=== PATIENT | male | born 1995 | race Caucasian/White ===

== ENCOUNTER 2017-12-31 11:30 | Emergency (ER) | payer OTHER ==
[2017-12-31 12:13] VITALS: BP 130/73
--- NOTE | 2017-12-31 12:41 | UC ---
Eye Complaint HPI - HPI Summary HPI Summary: 22 YO M C/O SPRAY PAINT GOT INTO BOTH EYES YESTERDAY. HE WASHED THEM OUT WITH WATER RIGHT AWAY. C/O BURNING AND REDNESS OF EYES SINCE THEN. THE SX HAVE IMPROVED. INITIALLY SOOME BLURRED VISION, THE VISION RETURNED TO NORMAL. NO CONTACTS. - History of Current Complaint Chief Complaint: UCEye Stated Complaint: EYE IRRITATION (WC) Time Seen by Provider: 12/31/17 12:25 Pain Intensity: 3 - Allergies/Home Medications Allergies/Adverse Reactions: Allergies Allergy/AdvReac Type Severity Reaction Status Date / Time No Known Allergies Allergy Verified 12/31/17 12:09 PMH/Surg Hx/FS Hx/Imm Hx Previously Healthy: Yes Other Cardiovascular History: NO HTN Other Respiratory History: NO ASTHMA - Surgical History Surgical History: Yes Surgery Procedure, Year, and Place: appendectomy - Family History Known Family History: Negative: Hypertension, Renal Disease - Social History Occupation: Employed Full-time Alcohol Use: None Substance Use Type: None Smoking Status (MU): Never Smoked Tobacco Review of Systems Constitutional: Negative Skin: Other - SOME PAINT WAS ON FACE AFTERWARDS, NO SKIN IRRITATION Eyes: Blurred Vision - BRIEFLY YESTERDAY, Eye Redness ENT: Negative Respiratory: Negative Cardiovascular: Negative Gastrointestinal: Negative Genitourinary: Negative Motor: Negative Neurovascular: Negative Musculoskeletal: Negative Neurological: Negative Psychological: Negative Is Patient Immunocompromised?: No All Other Systems Reviewed And Are Negative: Yes Physical Exam Triage Information Reviewed: Yes Appearance: Well-Appearing, No Pain Distress, Well-Nourished Vital Signs: Initial Vital Signs Temp 98.7 F 12/31/17 12:07 Pulse 64 12/31/17 12:07 Resp 14 12/31/17 12:07 BP 130/73 12/31/17 12:07 Pulse Ox 97 12/31/17 12:07 Vital Signs Reviewed: Yes Eyes: Positive: Other: - B/L MILD SCLERAL INJECTION. GLOBE INTACT. NO HYPHEMA. ENT: Negative: Nasal congestion Neck exam: Normal Neck: Positive: Supple Respiratory Exam: Normal Respiratory: Positive: No respiratory distress Musculoskeletal Exam: Normal Neurological Exam: Normal Psychological Exam: Normal Skin Exam: Normal Eye Complaint Course/Dx - Course Course Of Treatment: NO SIGN OF EYE INJURY ON EXAM. - Differential Dx/Diagnosis Provider Diagnoses: B/L EYE CHEMICAL IRRITATION Discharge - Sign-Out/Discharge Documenting (check all that apply): Patient Departure - Discharge Plan Condition: Stable Disposition: HOME Prescriptions: Tobramycin 0.3% OPHTH.ANA M* 1 drop BOTH EYES Q4H #1 btl Patient Education Materials: Eye Foreign Body (ED) Referrals: Maisha Pearson MD [Primary Care Provider] - [facility] [place] [Provider Group] Additional Instructions: FOLLOW UP WITH OPHTHALMOLOGY IF NOT COMPLETELY IMPROVED. GET RECHECKED FOR ANY WORSENING OF YOUR CONDITION OR QUESTIONS OR CONCERNS. - Billing Disposition and Condition Condition: STABLE Disposition: Home
== END 2017-12-31 12:48 | disposition home or self-care (01) ==
LOC: UCCORT 11:30
DX: H57.8 Other specified disorders of eye and adnexa (principal); X58.XXXA Exposure to other specified factors, initial encounter; Y93.9 Activity, unspecified; Y92.9 Unspecified place or not applicable
CPT/HCPCS: 99212; G0463